=== PATIENT | male | born 1960 | race African-American/Black ===

== ENCOUNTER 2017-04-19 09:14 | Emergency (ER) | payer SELFPAY ==
--- NOTE | 2017-04-19 10:55 | ER Document Report ---
HPI - HPI Patient complains to provider of: Right hand pain Onset: This morning Onset/Duration: Gradual Quality of pain: Achy Pain Level: 3 Context: Patient presents complaining of right hand tenderness with swelling that started today. Patient is right-hand dominant. 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 Patient denies any injury. Patient denies any fever. Associated Symptoms: Other - Right hand tenderness Exacerbated by: Movement Relieved by: Denies Similar symptoms previously: No Recently seen / treated by doctor: No - ROS ROS below otherwise negative: Yes Systems Reviewed and Negative: Yes All other systems reviewed and negative - CONSTITUTIONAL Constitutional: DENIES: Fever - NEURO Neurology: DENIES: Weakness - GASTROINTESTINAL Gastrointestinal: DENIES: Nausea, Patient vomiting - MUSCULOSKELETAL Musculoskeletal: REPORTS: Extremity pain - right hand, Swelling - DERM Skin Color: Normal Skin Problems: None Past Medical History - General Information source: Patient - Social History Smoking Status: Current Every Day Smoker Chew tobacco use (# tins/day): No Smoking Education Provided: Yes Frequency of alcohol use: None Drug Abuse: None Occupation: recycling Lives with: Spouse/Significant other Family History: Reviewed & Not Pertinent Patient has suicidal ideation: No Patient has homicidal ideation: No - Past Medical History Cardiac Medical History: Reports: Hx Hypertension Renal/ Medical History: Denies: Hx Peritoneal Dialysis Musculoskeltal Medical History: Denies Hx Gout Surgical Hx: Negative Vertical Provider Document - CONSTITUTIONAL Agree With Documented VS: Yes Exam Limitations: No Limitations General Appearance: WD/WN, No Apparent Distress - INFECTION CONTROL TRAVEL OUTSIDE OF THE [place] IN LAST 30 DAYS: No - HEENT HEENT: Atraumatic, Normocephalic - NECK Neck: Normal Inspection, Supple - RESPIRATORY Respiratory: Breath Sounds Normal, No Respiratory Distress O2 Sat by Pulse Oximetry: 96 - CARDIOVASCULAR Cardiovascular: Regular Rhythm Pulses: Normal: Radial - MUSCULOSKELETAL/EXTREMETIES Musculoskeletal/Extremeties: MAEW, FROM, Tender - Mild tenderness to dorsal aspect of right hand with 1+ edema, Edema Notes: Normal skin color and temperature overlying right hand - NEURO Level of Consciousness: Awake, Alert, Appropriate Motor/Sensory: No Motor Deficit, No Sensory Deficit - DERM Integumentary: Warm, Dry, No Rash Course - Re-evaluation Re-evalutation: 04/19/17 10:55 The patient has been informed that they may have pre-hypertension or hypertension based on a blood pressure reading in the emergency department. I recommend that patient call the primary care provider listed on their discharge instructions or a physician of their choice by this week to arrange follow-up for further evaluation of possible pre-hypertension or hypertension. Smoking cessation handout provided to patient 04/19/17 12:11 Joint not erythematous or warm to touch. No concern for septic joint or cellulitis. Patient with chronic arthritic changes on x-ray in addition to a previously healed fifth metacarpal fracture. 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 Discussed worsening symptoms that patient should return immediately for. Patient encouraged to follow-up with a hand specialist for any continued problems. - Vital Signs Vital signs: Temp Pulse Resp BP Pulse Ox 98.6 F 58 L 18 144/84 H 96 04/19/17 09:38 04/19/17 09:38 04/19/17 09:38 04/19/17 09:38 04/19/17 09:38 Procedures - Immobilization Right Hand Pre-Proc Neuro Vasc Exam: Normal Immobilizer type: Onesimo wrap Performed by: PCT Post-Proc Neuro Vasc Exam: Normal Alignment checked and good: Yes Discharge - Discharge Clinical Impression: Elevated blood pressure reading, Overuse injury, Arthritis Condition: Stable Disposition: HOME, SELF-CARE Instructions: Onesimo Wrap ([facility]), Arthritis ([facility]), Overuse Syndrome ([facility]) Additional Instructions: Return immediately for any new or worsening symptoms Followup with your primary care provider, call tomorrow to make a followup appointment Your blood pressure was elevated today. Follow-up with a primary doctor to have this rechecked in the next 3-5 days. Follow-up with a hand specialist for any continued pain or problems Prescriptions: Naproxen [Naprosyn 250 Nmg Tablet] 1 tab PO BID #14 tablet Forms: Elevated Blood Pressure, Smoking Cessation Education, Return to Work Referrals: ASHLEY NAZARIO DO [ACTIVE STAFF] - Follow up as needed [facility] [Provider Group] - Follow up in 3-5 days
--- NOTE | 2017-04-19 11:39 | RADIOLOGY REPORT (SQ) ---
EXAM DESCRIPTION: HAND RIGHT 3 VIEWS COMPLETED DATE/TIME: 04/19/2017 11:20 am REASON FOR STUDY: r hand swelling COMPARISON: None. EXAM PARAMETERS: NUMBER OF VIEWS: Three views. TECHNIQUE: AP, lateral and oblique radiographic images acquired of the right hand. LIMITATIONS: None. FINDINGS: MINERALIZATION: Normal. BONES: No acute fracture or dislocation. Old healed fracture of the 5th metacarpal. No worrisome jackson ne lesions. JOINTS: Joint space narrowing with sclerosis at the radiocarpal articulation. SOFT TISSUES: No soft tissue swelling. No foreign body. OTHER: No other significant finding. IMPRESSION: OLD HEALED FRACTURE OF THE 5TH METACARPAL. DEGENERATIVE CHANGES IN THE WRIST AT THE RAD IOCARPAL ARTICULATION. NO ACUTE FINDINGS. TECHNICAL DOCUMENTATION: JOB ID: [id number] [employer]- All Rights Reserved
[2017-04-19 12:38] VITALS: BP 154/106
== END 2017-04-19 12:38 | disposition home or self-care (01) ==
LOC: ER 09:14
DX: M70.841 Other soft tissue disorders related to use, overuse and pressure, right hand (principal); M79.641 Pain in right hand; M13.80 Other specified arthritis, unspecified site; Y93.89 Activity, other specified; Y92.89 Other specified places as the place of occurrence of the external cause; F17.200 Nicotine dependence, unspecified, uncomplicated; I10 Essential (primary) hypertension
CPT/HCPCS: 99283

== ENCOUNTER 2017-12-03 09:30 | Emergency (ER) | payer OTHER ==
--- NOTE | 2017-12-03 10:23 | ER Document Report ---
ED General - General Chief Complaint: High Blood Pressure Stated Complaint: BLOOD PRESSURE PROBLEMS Time Seen by Provider: 12/03/17 10:22 TRAVEL OUTSIDE OF THE [place] IN LAST 30 DAYS: No - HPI Notes: Patient is a 87-year-old male that presents to the emergency department for chief complaint of hypertension. Patient presents from urgent care for elevated blood pressure. He states he has been taking lisinopril 10 mg for the last few years. He denies any recent change in his blood pressure medication. He initially sought urgent care because he felt "shaky" a few days ago which he states those symptoms have resolved. Currently he is asymptomatic. He denies headache, vision changes, numbness, weakness, nausea, vomiting and chest pain. Past Medical History: Hypertension, hepatitis C Past Surgical History: Negative Social History: Reviewed Family History: Reviewed and noncontributory for presenting illness Allergies: Reviewed, see documented allergy list. REVIEW OF SYSTEMS: CONSTITUTIONAL : No fever No chills No diaphoresis No recent illness EENT: No vision changes No congestion No sore throat CARDIOVASCULAR: No chest pain No palpitations No shortness of breath RESPIRATORY: No shortness of breath No cough No difficulty breathing GASTROINTESTINAL: No abdominal pain No nausea No vomiting No diarrhea GENITOURINARY: No dysuria No hematuria No difficulty urinating MUSCULOSKELETAL: No back pain No leg pain No arm pain SKIN: No rashes No lesions LYMPHATIC: No swollen, enlarged glands. NEUROLOGICAL: No lightheadedness No headache No weakness No paresthesias PSYCHIATRIC: No anxiety No depression PHYSICAL EXAMINATION: Vital signs reviewed, nursing noted reviewed. GENERAL: Well-appearing, well-nourished and in no acute distress. HEAD: Atraumatic, normocephalic. EYES: Eyes appear normal, extraocular movements intact, sclera anicteric, conjunctiva are normal. ENT: nares patent, oropharynx clear without exudates. Moist mucous membranes. NECK: Normal range of motion, supple without lymphadenopathy LUNGS: Breath sounds clear to auscultation bilaterally and equal. No wheezes rales or rhonchi. HEART: Regular rate and rhythm without murmurs ABDOMEN: Soft, nontender, normoactive bowel sounds. No rebound, guarding, or rigidity. No masses appreciated. EXTREMITIES: Nontender, good range of motion, no pitting or edema. NEUROLOGICAL: No focal neurological deficits. Moves all extremities spontaneously Motor and sensory grossly intact on exam. PSYCH: Normal mood, normal affect. SKIN: Warm, Dry, normal turgor, no rashes or lesions noted on exposed skin - Related Data Allergies/Adverse Reactions: No Known Allergies Allergy (Verified 12/03/17 09:34) Past Medical History - Social History Smoking Status: Current Every Day Smoker Chew tobacco use (# tins/day): No Frequency of alcohol use: Occasional Drug Abuse: None Family History: Reviewed & Not Pertinent Patient has suicidal ideation: No Patient has homicidal ideation: No - Past Medical History Cardiac Medical History: Reports: Hx Hypertension Renal/ Medical History: Denies: Hx Peritoneal Dialysis Musculoskeletal Medical History: Denies Hx Gout Past Surgical History: Reports: Hx Orthopedic Surgery - R wrist Physical Exam - Vital signs Vitals: Temp Pulse Resp BP Pulse Ox 97.7 F 58 L 16 176/107 H 96 12/03/17 09:42 12/03/17 09:42 12/03/17 09:42 12/03/17 09:42 12/03/17 09:42 Course - Re-evaluation Re-evalutation: 12/03/17 11:29 Vitals reviewed. Nursing notes reviewed. Lab work shows no endorgan damage. EKG reviewed from outside facility shows no acute ischemia or dysrhythmia. Patient's blood pressure is elevated and he cannot see a primary care doctor for a few weeks. I will increase his lisinopril dose to 20 mg daily. He will follow with his primary care as scheduled on December 13. He will return for new or worsening symptoms. Discharged in stable condition. Laboratory 12/03/17 12/03/17 12/03/17 10:34 10:34 10:34 WBC 8.0 RBC 4.99 Hgb 14.5 Hct 42.9 MCV 86 MCH 29.0 MCHC 33.8 RDW 14.0 Plt Count 179 Seg Neutrophils % 36.2 L Lymphocytes % 45.5 H Monocytes % 12.9 Eosinophils % 5.1 Basophils % 0.3 Absolute Neutrophils 2.9 Absolute Lymphocytes 3.7 Absolute Monocytes 1.0 Absolute Eosinophils 0.4 Absolute Basophils 0.0 Sodium 140.9 Potassium 4.0 Chloride 106 Carbon Dioxide 25 Anion Gap 10 BUN 11 Creatinine 0.92 Est GFR ( Amer) > 60 Est GFR (Non-Af Amer) > 60 Glucose 93 Calcium 9.5 Troponin I < 0.012 - Vital Signs Vital signs: Temp Pulse Resp BP Pulse Ox 97.7 F 58 L 16 176/107 H 96 12/03/17 09:42 12/03/17 09:42 12/03/17 09:42 12/03/17 09:42 12/03/17 09:42 - Laboratory Result Diagrams: 12/03/17 10:34 12/03/17 10:34 Laboratory results interpreted by me: 12/03/17 10:34 Seg Neutrophils % 36.2 L Lymphocytes % 45.5 H Discharge - Discharge Clinical Impression: Hypertension, uncontrolled Condition: Stable Disposition: HOME, SELF-CARE Instructions: High Blood Pressure, Requiring Treatment ([facility]) Additional Instructions: Please return to the emergency department if you have any worsening, or concern of your symptoms. Please return to the emergency department if you develop chest pain, difficulty breathing, severe abdominal pain, or ongoing vomiting. Please follow-up with your primary care physician in 2-3 days and any other recommended physicians. If prescribed, take all medications as directed. If you have any questions or concerns do not hesitate to return the emergency department for evaluation. Begin taking lisinopril 20 mg daily. Follow with your primary care doctor on December 13 Prescriptions: Lisinopril 20 mg PO DAILY #30 tablet
[2017-12-03 10:50] LABS: ABSOLUTE EOSINOPHILS # (AUTO) 0.4 10^3/uL (0.0-0.6); ABSOLUTE LYMPHOCYTES (AUTO) 3.7 10^3/uL (0.5-4.7); ABSOLUTE NEUT (AUTO) 2.9 10^3/uL (1.7-8.2); BASOPHILS % (AUTO) 0.3 % (0-2); EOSINOPHILS % (AUTO) 5.1 % (0-6); HEMATOCRIT 42.9 % (37.9-51.0); HEMOGLOBIN 14.5 g/dL (13.5-17.0); LYMPHOCYTES % (AUTO) 45.5 % (13-45); MEAN CORPUSCULAR HGB CONC 33.8 g/dL (32.0-36.0); MEAN CORPUSCULAR VOLUME 86 fl (80-97); MONOCYTES % (AUTO) 12.9 % (3-13); PLATELET COUNT 179 10^3/uL (150-450); RED BLOOD COUNT 4.99 10^6/uL (4.35-5.55); SEGMENTED NEUTROPHILS % (AUTO) 36.2 % (42-78); TOTAL CELLS COUNTED % (AUTO) 100 %
[2017-12-03 11:07] LABS: ANION GAP 10 (5-19); BLOOD UREA NITROGEN 11 mg/dL (7-20); CALCIUM 9.5 mg/dL (8.4-10.2); CARBON DIOXIDE 25 mmol/L (22-30); CHLORIDE 106 mmol/L (98-107); GLUCOSE 93 mg/dL (75-110); SODIUM 140.9 mmol/L (137-145)
[2017-12-03 11:45] VITALS: BP 160/92
== END 2017-12-03 11:40 | disposition home or self-care (01) ==
LOC: ER 09:30
DX: I10 Essential (primary) hypertension (principal); Z79.899 Other long term (current) drug therapy; F17.200 Nicotine dependence, unspecified, uncomplicated
CPT/HCPCS: 36415; 80048; 84484; 85025; 99283

== ENCOUNTER 2018-04-05 08:52 | Emergency (ER) | payer OTHER ==
--- NOTE | 2018-04-05 09:38 | ER Document Report ---
HPI - HPI Patient complains to provider of: Cough, right upper extremity pain, red refill Time Seen by Provider: 04/05/18 09:26 Onset/Duration: Persistent Quality of pain: Achy Pain Level: 4 Context: Patient presents with a 3-day history of right shoulder and right wrist pain. 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 Patient denies any specific injury. Patient also complains of cough for the past 2 weeks and whenever he coughs he has right lateral rib tenderness. Patient denies any chest pain or rib pain at this time. Patient denies any fever. Patient also states he has a history of hypertension and is waiting for his insurance card so he can follow-up with a primary doctor. Patient states he ran out of his blood pressure medicine 2 weeks ago. Patient denies any headache, chest pain, dyspnea or any problems with urination. Associated Symptoms: Nonproductive cough, Other - Right upper extremity pain. denies: Fever, Headache Exacerbated by: Movement Relieved by: Remaining still Similar symptoms previously: No Recently seen / treated by doctor: No - ROS ROS below otherwise negative: Yes Systems Reviewed and Negative: Yes All other systems reviewed and negative - CONSTITUTIONAL Constitutional: DENIES: Fever, Chills - EENT EENT: DENIES: Sore Throat, Ear Pain, Eye problems - NEURO Neurology: DENIES: Headache, Weakness, Vision blurred, Dizzinesss / Vertigo - CARDIOVASCULAR Cardiovascular: DENIES: Chest pain - RESPIRATORY Respiratory: REPORTS: Coughing. DENIES: Trouble Breathing - GASTROINTESTINAL Gastrointestinal: DENIES: Patient vomiting - MUSCULOSKELETAL Musculoskeletal: REPORTS: Extremity pain - rt shoulder, rt wrist pain. DENIES: Back Pain - DERM Skin Color: Normal Skin Problems: None Past Medical History - General Information source: Patient - Social History Smoking Status: Current Every Day Smoker Chew tobacco use (# tins/day): No Smoking Education Provided: Yes Frequency of alcohol use: Occasional Drug Abuse: None Occupation: [employer] plant Family History: Reviewed & Not Pertinent Patient has suicidal ideation: No Patient has homicidal ideation: No - Past Medical History Cardiac Medical History: Reports: Hx Hypertension Renal/ Medical History: Denies: Hx Peritoneal Dialysis Musculoskeletal Medical History: Denies Hx Gout Infectious Medical History: Reports: Hx Hepatitis - Hepatitis C that was treated with Harvoni Past Surgical History: Reports: Hx Orthopedic Surgery - R wrist Vertical Provider Document - CONSTITUTIONAL Agree With Documented VS: Yes Exam Limitations: No Limitations General Appearance: WD/WN, No Apparent Distress - INFECTION CONTROL TRAVEL OUTSIDE OF THE [place] IN LAST 30 DAYS: No - HEENT HEENT: Atraumatic, Normal ENT Exam, Normocephalic - NECK Neck: Normal Inspection, Supple. negative: Lymphadenopathy-Left, Lymphadenopathy-Right - RESPIRATORY Respiratory: Breath Sounds Normal, No Respiratory Distress, Chest Non-Tender. negative: Rales, Rhonchi, Wheezing - CARDIOVASCULAR Cardiovascular: Regular Rate, Regular Rhythm, No Murmur - GI/ABDOMEN Gastrointestinal: Abdomen Soft - BACK Back: Normal Inspection - MUSCULOSKELETAL/EXTREMETIES Musculoskeletal/Extremeties: MAEW, FROM, Tender - Generalized right shoulder joint tenderness with range of motion, normal skin color and temperature overlying joint. No deformity, no dislocation. Tenderness increases with extension and abduction. Right wrist tenderness with flexion and extension. Normal skin color and temperature overlying the right wrist joint. No deformity. - NEURO Level of Consciousness: Awake, Alert, Appropriate Motor/Sensory: No Motor Deficit - DERM Integumentary: Warm, Dry, No Rash Course - Re-evaluation Re-evalutation: 04/05/18 11:00 Respirations even unlabored, patient nontoxic in appearance. We will give patient refill of his medications with encouragement to follow-up with primary care provider. Chest x-ray reviewed, no concern for pneumothorax or pneumonia at this time. - Vital Signs Vital signs: Temp Pulse Resp BP Pulse Ox 98.5 F 65 16 164/96 H 97 04/05/18 08:59 04/05/18 08:59 04/05/18 08:59 04/05/18 08:59 04/05/18 08:59 - Laboratory Result Diagrams: 04/05/18 10:01 Laboratory results interpreted by me: 04/05/18 11:00 Labs- Entire Visit 04/05/18 10:01 Sodium 141.1 Potassium 3.9 Chloride 107 Carbon Dioxide 25 Anion Gap 9 BUN 13 Creatinine 1.07 Est GFR ( Amer) > 60 Est GFR (Non-Af Amer) > 60 Glucose 101 Calcium 9.2 - Diagnostic Test Radiology reviewed: Reports reviewed Procedures - Immobilization Right Wrist Pre-Proc Neuro Vasc Exam: Normal Immobilizer type: Cock-up Performed by: PCT Post-Proc Neuro Vasc Exam: Normal Alignment checked and good: Yes Right Shoulder Pre-Proc Neuro Vasc Exam: Normal Immobilizer type: Sling Performed by: PCT Post-Proc Neuro Vasc Exam: Normal Alignment checked and good: Yes Discharge - Discharge Clinical Impression: Bronchitis, Tendonitis, Medication refill Sprain of right shoulder Qualifiers: Encounter type: initial encounter Shoulder sprain type: unspecified sprain Qualified Code(s): S43.401A - Unspecified sprain of right shoulder joint, initial encounter Hypertension Qualifiers: Hypertension type: unspecified Qualified Code(s): I10 - Essential (primary) hypertension Condition: Stable Disposition: HOME, SELF-CARE Instructions: Bronchitis ([facility]), High Blood Pressure ([facility]), Shoulder Injury ([facility]), Tendonitis ([facility]) Additional Instructions: Return immediately for any new or worsening symptoms Followup with your primary care provider, call tomorrow to make a followup appointment Follow-up with orthopedics for any persistent pain to her wrist or shoulder. Wear sling to right arm only while awake for the next 3-4 days and then remove. Wear splint to right wrist for the next 4 days and then remove. If still having pain follow-up with orthopedics for further evaluation. Prescriptions: Lisinopril 20 mg PO DAILY #30 tablet Tramadol HCl [Ultram 50 mg Tablet] 50 mg PO ASDIR PRN #20 tablet PRN Reason: Forms: Smoking Cessation Education, Return to Work Referrals: [facility] [Provider Group] - Follow up as needed [facility] [Provider Group] - Follow up as needed [facility] [Provider Group] - Follow up as needed
[2018-04-05 10:40] LABS: ANION GAP 9 (5-19); BLOOD UREA NITROGEN 13 mg/dL (7-20); CALCIUM 9.2 mg/dL (8.4-10.2); CARBON DIOXIDE 25 mmol/L (22-30); CHLORIDE 107 mmol/L (98-107); GLUCOSE 101 mg/dL (75-110); POTASSIUM 3.9 mmol/L (3.6-5.0); SODIUM 141.1 mmol/L (137-145)
--- NOTE | 2018-04-05 10:43 | RADIOLOGY REPORT (SQ) ---
EXAM DESCRIPTION: CHEST 2 VIEWS COMPLETED DATE/TIME: 04/05/2018 10:11 am REASON FOR STUDY: cough, r rib pain COMPARISON: None. EXAM PARAMETERS: NUMBER OF VIEWS: two views TECHNIQUE: Digital Frontal and Lateral radiographic views of the chest acquired. RADIATION DOSE: NA LIMITATIONS: none FINDINGS: LUNGS AND PLEURA: No opacities, masses or pneumothorax. No pleural effusion. MEDIASTINUM AND HILAR STRUCTURES: No masses or contour abnormalities. HEART AND VASCULAR STRUCTURES: Heart normal size. No evidence for failure. BONES: Disc degenerative disease of the thoracic spine. HARDWARE: None in the chest. OTHER: No other significant finding. IMPRESSION: NO ACUTE RADIOGRAPHIC FINDING IN THE CHEST. TECHNICAL DOCUMENTATION: JOB ID: [id number] [employer]- All Rights Reserved Reading location - IP/workstation name: [email or web address]
[2018-04-05] MEDS ORDERED: LISINOPRIL 10 MG TABLET PO ONE ×2 (10:57→10:59)
[2018-04-05 11:22] VITALS: BP 163/102
== END 2018-04-05 11:28 | disposition home or self-care (01) ==
LOC: ER 08:52
DX: J40 Bronchitis, not specified as acute or chronic (principal); S43.401A Unspecified sprain of right shoulder joint, initial encounter; M77.9 Enthesopathy, unspecified; X58.XXXA Exposure to other specified factors, initial encounter; Y99.0 Civilian activity done for income or pay; I10 Essential (primary) hypertension; M79.601 Pain in right arm; F17.200 Nicotine dependence, unspecified, uncomplicated
CPT/HCPCS: 99284; 36415; 80048; 71046; L3908